=== PATIENT | male | born 1985 | race Caucasian/White ===

== ENCOUNTER 2019-07-08 01:41 | Emergency (ER) | payer BC ==
--- NOTE | 2019-07-08 02:58 | RADIOLOGY REPORT (SQ) ---
CLINICAL HISTORY: laceration COMPARISON: None. TECHNIQUE: XR FEMUR 2 VIEWS 07/08/2019 12:00 AM [facility] FINDINGS: There is no fracture. Joint spaces are preserved. Soft tissues are unremarkable. IMPRESSION: No acute osseous findings.
[2019-07-08] MEDS ORDERED: LIDOCAINE 1%/EPINEPHRINE INJ 20 ML VIAL INJ ONE (04:21)
--- NOTE | 2019-07-08 04:25 | ER Document Report ---
ED Wound - General Chief Complaint: Laceration Stated Complaint: LEFT LEG LACERATION Time Seen by Provider: 07/08/19 04:17 Notes: Patient is a 33-year-old male that comes emergency department with chief complaint of laceration to the left anterior proximal thigh. He states that he was sitting in bed trying to fit a new blade into his utility knife when the blade slipped and he accidentally gashed himself on the thigh. He states he cut himself through his pajamas. He denies any other injuries. He denies intentional harm or suicidal ideations. He states his tetanus is up-to-date within 5 years. He denies any other complaints. He denies any daily medications, diabetes, blood thinner use. TRAVEL OUTSIDE OF THE [place] IN LAST 30 DAYS: No - Related Data Allergies/Adverse Reactions: No Known Allergies Allergy (Verified 11/15/18 13:02) Past Medical History - General Information source: Patient - Social History Smoking Status: Current Every Day Smoker Frequency of alcohol use: 4 drinks Drug Abuse: Marijuana Lives with: Alone Family History: Reviewed & Not Pertinent Patient has suicidal ideation: No Patient has homicidal ideation: No Renal/ Medical History: Denies: Hx Peritoneal Dialysis Surgical Hx: Negative - Immunizations Immunizations up to date: Yes Hx Diphtheria, Pertussis, Tetanus Vaccination: Yes Review of Systems - Review of Systems Constitutional: No symptoms reported EENT: No symptoms reported Cardiovascular: No symptoms reported Respiratory: No symptoms reported Gastrointestinal: No symptoms reported Genitourinary: No symptoms reported Male Genitourinary: No symptoms reported Musculoskeletal: See HPI Skin: See HPI Hematologic/Lymphatic: No symptoms reported Neurological/Psychological: No symptoms reported Physical Exam - Vital signs Vitals: Temp Pulse Resp BP Pulse Ox 98.4 F 106 H 20 148/71 H 98 07/08/19 01:46 07/08/19 01:46 07/08/19 01:46 07/08/19 01:46 07/08/19 01:46 - Notes Notes: GENERAL: Alert, interacts well. No acute distress. HEAD: Normocephalic, atraumatic. EYES: Pupils equal, round, and reactive to light. Extraocular movements intact. ENT: Oral mucosa moist, tongue midline. Oropharynx unremarkable. Airway patent. NECK: Full range of motion. Supple. Trachea midline. LUNGS: Clear to auscultation bilaterally, no wheezes, rales, or rhonchi. No respiratory distress. HEART: Regular rate and rhythm. No murmur ABDOMEN: Soft, non-tender. Non-distended. EXTREMITIES: There is a 5 cm linear full-thickness laceration over the proximal anterior thigh. Normal range of motion of the, knee, normal distal neurovascular exam. No other concerning findings. BACK: no cervical, thoracic, lumbar midline tenderness. No saddle anesthesia, normal distal neurovascular exam. Moves all extremities in full range of motion. NEUROLOGICAL: Alert and oriented x3. Normal speech. Cranial nerves II through XII grossly intact. PSYCH: Normal affect, normal mood. SKIN: Warm, dry, normal turgor. No rashes or lesions noted. Course - Re-evaluation Re-evalutation: Physical exam shows laceration, reportedly accidental, patient is slightly embarrassed and his behavior is not suspicious. He is very cooperative. I did review x-ray from triage, this was negative. His tetanus is up-to-date. Laceration is full-thickness but does not include muscle and there is no evidence of any other concerning damage. Cleaned thoroughly, repaired, discussed care, follow-up, return precautions. Patient states appreciation and agreement. - Vital Signs Vital signs: Temp Pulse Resp BP Pulse Ox 98 F 75 17 102/68 96 07/08/19 05:57 07/08/19 05:57 07/08/19 05:57 07/08/19 05:57 07/08/19 05:57 Procedures - Laceration/Wound Repair left thigh Time completed: 05:30 Wound length (cm): 5 Wound's Depth, Shape: Linear Laceration pre-procedure: Sterile PPE donned, Sterile drapes applied, Shur-Clens applied Anesthetic type: 1% Lidocaine w/epi Volume Anesthetic (mLs): 8 Wound explored: Clean, No foreign body removed Irrigated w/ Saline (mLs): 75 Wound Repaired With: Sutures Suture Size/Type: 4:0, Nylon Number of Sutures: 1 - running Layer Closure?: Yes Deep Layer Suture Size/Type: 5:0, Other - vicryl Post-procedure wound care: Sterile dressing applied Post-procedure NV exam normal: Yes Complications: No Discharge - Discharge Clinical Impression: Laceration of left thigh Qualifiers: Encounter type: initial encounter Qualified Code(s): S71.112A - Laceration without foreign body, left thigh, initial encounter Condition: Stable Disposition: HOME, SELF-CARE Additional Instructions: The sutures on top need to be removed in 7 to 10 days. Keep clean, clean with soap and water, you can apply thin film of topical antibiotic to the area. Avoid soaking or scrubbing. Follow-up with primary care. Return for any signs of infection including developing pain, redness, swelling, discolored discharge, fever, or any other concerning symptoms. Forms: Return to Work
[2019-07-08 05:58] VITALS: BP 102/68
== END 2019-07-08 05:58 | disposition home or self-care (01) ==
LOC: ER 01:41
DX: S71.112A Laceration without foreign body, left thigh, initial encounter (principal); W26.0XXA Contact with knife, initial encounter; Y93.89 Activity, other specified; F17.200 Nicotine dependence, unspecified, uncomplicated; F12.10 Cannabis abuse, uncomplicated
CPT/HCPCS: 99283; 73552; 12032; J3490